=== PATIENT | female | born 1955 | race Caucasian/White ===

== ENCOUNTER 2020-07-13 21:13 | Emergency (ER) | payer MEDICARE ==
[~2020-07-13] VITALS: Ht 162.6 cm; Wt 53.5 kg
--- NOTE | 2020-07-13 21:44 | NUR ---
pt to room and assesed by . Rad to room for cxry
[2020-07-13 21:59] LABS: BASOPHILS % (AUTO) 1 % (0-1); EOSINOPHILS % (AUTO) 4 % (1-7); LYMPHOCYTES % (AUTO) 20 % (22-44); MEAN CORPUSCULAR HGB CONC 33.7 g/dL (32.4-35.8); MEAN PLATELET VOLUME 7.5 fL (7.4-10.4); MONOCYTES % (AUTO) 11 % (2-9); NEUTROPHILS % (AUTO) 63 % (42-75); PLATELET COUNT 318 x10^3/uL (130-400); RED BLOOD COUNT 3.91 x10^6/uL (3.82-5.3); RED CELL DISTRIBUTION WIDTH 12.5 % (9.6-15.2)
[2020-07-13 22:09] LABS: ALBUMIN 3.9 g/dL (3.4-5.0); CALCIUM 9.1 mg/dL (8.5-10.1); CHLORIDE 102 mmol/L (98-107); CREATININE 0.92 mg/dL (0.55-1.02)
[2020-07-13 22:10] LABS: MD NO
[2020-07-13 22:13] LABS: TROPONIN I < 0.015 ng/mL (0.000-0.045)
[2020-07-13] MEDS ORDERED: AZITHROMYCIN 250 MG TABLET ONE (22:22)
[2020-07-13 22:24] LABS: ANION GAP 4 mmol/L (5-15)
[2020-07-13] MEDS ORDERED: AZITHROMYCIN 500 MG TABLET PO ONE (22:30)
[2020-07-13 22:31] VITALS: BP 170/77
[2020-07-16] MEDS ORDERED: ATEN50TA41 PO (19:49)
[2020-07-16] MEDS ORDERED: LORA2TAB99 PO (19:49)
[2020-07-16] MEDS ORDERED: HYDR25CA PO (19:49)
[2020-07-16] MEDS ORDERED: OMEP20TA62 PO (19:49)
[2020-07-16] MEDS ORDERED: LINA290C PO (19:49)
[2020-07-16] MEDS ORDERED: AMLO5TAB4 PO (19:49)
[2020-07-16] MEDS ORDERED: CLON0.1T22 PO (19:49)
[2020-07-17] MEDS ORDERED: TIOT18CA INH (18:17)
== END 2020-07-13 23:33 | disposition home or self-care (01) ==
LOC: ED 22:14
DX: J44.1 Chronic obstructive pulmonary disease with (acute) exacerbation (principal); R94.31 Abnormal electrocardiogram [ECG] [EKG]; I10 Essential (primary) hypertension; F17.210 Nicotine dependence, cigarettes, uncomplicated
CPT/HCPCS: 36415; 71045; 80048; 82040; 83880; 84484; 85025; 93005; 99285; 99406

== ENCOUNTER 2020-08-13 17:03 | Emergency (ER) | payer MEDICARE ==
[~2020-08-13] VITALS: Ht 162.6 cm; Wt 52.9 kg
[~2020-08-13 17:03] MED LIST: AMLO5TAB4 PO; AMOX1TAB12 PO; ATEN50TA41 PO; CLON0.1T22 PO; HYDR25CA PO; LINA290C PO; LORA2TAB99 PO; OMEP20TA62 PO; TIOT18CA INH
--- NOTE | 2020-08-13 17:16 | NUR ---
[employer]: PT AMBULATED TO THE ROOM W/ A STEADY GAIT AT THIS TIME.
--- NOTE | 2020-08-13 17:19 | NUR ---
ERMD AT BEDSIDE FOR EVALUATION.
--- NOTE | 2020-08-13 17:20 | NUR ---
PATIENT WALKED BACK FROM TRIAGE WITH CHIEF C/O HIGH HEART RATE AND ERRATIC BLOOD PRESSURE. PER PATIENT SHE HAS BEEN SEEN HERE FOR SAME ISSUE, ADMITTED AND FOLLOWED UP WITH DR. BOOGIE AFTER DISCHARGE. HOWEVER, IN THE EVENING PATIENT'S HR IS GREATER THAN 100 PER PATIENT. PATIENT ALSO C/O HER FEET BEING COLD ALL THE TIME. NADN, HR NOW IS 92, ACCOMPANIED BY FRIEND. CALL LIGHT WITHIN REACH.
[2020-08-13 17:59] LABS: BASOPHILS % (AUTO) 2 % (0-1); EOSINOPHILS % (AUTO) 4 % (1-7); LYMPHOCYTES % (AUTO) 26 % (22-44); MEAN CORPUSCULAR HEMOGLOBIN 31.8 pg (27.0-34.8); MEAN CORPUSCULAR HGB CONC 33.8 g/dL (32.4-35.8); MEAN PLATELET VOLUME 7.5 fL (7.4-10.4); MONOCYTES % (AUTO) 8 % (2-9); NEUTROPHILS % (AUTO) 60 % (42-75); PLATELET COUNT 366 x10^3/uL (130-400); RED BLOOD COUNT 3.78 x10^6/uL (3.82-5.3); RED CELL DISTRIBUTION WIDTH 12.6 % (9.6-15.2)
[2020-08-13 18:04] LABS: MD NO
--- NOTE | 2020-08-13 18:05 | NUR ---
PATIENT SITTING IN GURNEY TALKING WITH FRIEND, NADN, VSS, CALL LIGHT WITHIN REACH. WARM BLANKET PROVIDED TO PATIENT.
[2020-08-13 18:07] LABS: ALBUMIN 3.5 g/dL (3.4-5.0); ANION GAP 6 mmol/L (5-15); CALCIUM 9.1 mg/dL (8.5-10.1); CHLORIDE 108 mmol/L (98-107); CREATININE 1.08 mg/dL (0.55-1.02)
[2020-08-13 18:17] LABS: FREE T4 (FREE THYROXINE) 0.87 ng/dL (0.76-1.46); TROPONIN I < 0.015 ng/mL (0.000-0.045)
[2020-08-13 18:19] VITALS: BP 106/55
--- NOTE | 2020-08-13 18:24 | NUR ---
ERMD AT BEDSIDE TO DISCUSS POC.
--- NOTE | 2020-08-13 18:39 | NUR ---
Patient given discharge instructions and they have confirmed that they understand the instructions. Patient stable and ambulatory with steady gait from ED with friend at side.
== END 2020-08-13 18:35 | disposition home or self-care (01) ==
LOC: ED 18:15
DX: R00.2 Palpitations (principal); F41.1 Generalized anxiety disorder; I10 Essential (primary) hypertension; J44.9 Chronic obstructive pulmonary disease, unspecified; E78.5 Hyperlipidemia, unspecified; F17.210 Nicotine dependence, cigarettes, uncomplicated; Z85.3 Personal history of malignant neoplasm of breast; Z86.73 Personal history of transient ischemic attack (TIA), and cerebral infarction without residual deficits; Z85.44 Personal history of malignant neoplasm of other female genital organs
CPT/HCPCS: 36415; 80048; 82040; 84439; 84443; 84484; 85025; 93005; 99284; 99406

== ENCOUNTER 2021-01-21 07:30 | Day surgery (SDC) | payer MEDICARE ==
[2021-01-19 14:54] LABS: ALANINE AMINOTRANSFERASE 24 U/L (12-78); ALBUMIN 3.9 g/dL (3.4-5.0); ANION GAP 3 mmol/L (5-15); CALCIUM 9.7 mg/dL (8.5-10.1); CHLORIDE 102 mmol/L (98-107); CREATININE 0.85 mg/dL (0.55-1.02)
[2021-01-19 14:56] LABS: ALKALINE PHOSPHATASE 73 U/L (45-117); BILIRUBIN,TOTAL 0.3 mg/dL (0.2-1.0); TOTAL PROTEIN 7.4 g/dL (6.4-8.2)
[~2021-01-21] VITALS: Ht 165.1 cm; Wt 49.7 kg
[~2021-01-21 07:30] MED LIST changes: +ASPI81TA45 PO; +ATEN25TA PO; +CIDE300T PO; +CINN500C2 PO; +LORA-446 PO; +SIME180C44 PO
[2021-01-21] MEDS ORDERED: CHLORHEXIDINE 15 ML UDC ONE (07:49)
[2021-01-21 07:59] VITALS: BP 119/69
[2021-01-21] MEDS ORDERED: CHLORHEXIDINE 15 ML UDC PO ONE (08:00)
[2021-01-21] MEDS ORDERED: LACTATED RINGERS 1,000 ML IV SCH (08:00)
[2021-01-21] MEDS ORDERED: UMEC1DIS INH (08:07)
[2021-01-21] MEDS ORDERED: PROPOFOL 100 ML ONE (09:40)
[2021-01-21] MEDS ORDERED: ACETAMINOPHEN 325 MG TABLET PO PRN (11:00)
[2021-01-21] MEDS ORDERED: PROMETHAZINE 25 MG/ML, 1ML IVPush PRN (11:00)
[2021-01-21] MEDS ORDERED: hydrALAzine 20 MG/ML, 1ML IV PRN (11:00)
[2021-01-21] MEDS ORDERED: HYDROmorphone 1 MG/ML, 1ML INJ IVPush PRN (11:00)
[2021-01-21] MEDS ORDERED: OXYcodone 5 MG/5 ML ORAL.SOL UDC PO PRN (11:00)
[2021-01-21] MEDS ORDERED: ONDANSETRON 2MG/ML, 2ML IVPush PRN (11:00)
[2021-01-21] MEDS ORDERED: LORazepam 2 MG/ML, 1ML IVPush PRN (11:00)
[2021-01-21] MEDS ORDERED: FENTANYL PF 100 MCG/2ML IV PRN (11:00)
[2021-01-21] MEDS ORDERED: LABETALOL 5MG/ML, 20ML IV PRN (11:00)
[2021-01-21] MEDS ORDERED: PROMETHAZINE 25 MG SUPP PR PRN (11:00)
== END 2021-01-21 12:30 | disposition home or self-care (01) ==
LOC: OUT 07:30
PROVIDERS: ATTEND Internal Medicine Gastroenterology
DX: D12.3 Benign neoplasm of transverse colon (principal); D12.0 Benign neoplasm of cecum; J44.9 Chronic obstructive pulmonary disease, unspecified; K21.9 Gastro-esophageal reflux disease without esophagitis; F17.210 Nicotine dependence, cigarettes, uncomplicated; I10 Essential (primary) hypertension; E78.00 Pure hypercholesterolemia, unspecified; F32.9 Major depressive disorder, single episode, unspecified; Z85.3 Personal history of malignant neoplasm of breast; F41.9 Anxiety disorder, unspecified; Z88.8 Allergy status to other drugs, medicaments and biological substances; Z88.5 Allergy status to narcotic agent; Z90.49 Acquired absence of other specified parts of digestive tract; Z98.890 Other specified postprocedural states; Z79.899 Other long term (current) drug therapy; Z79.82 Long term (current) use of aspirin
CPT/HCPCS: 36415; 43239; 43249; 45385; 80053; 88305; 93005; C1725; J2704; J7120; U0003; U0005

== ENCOUNTER 2021-04-09 17:57 | Inpatient (IN) | payer MEDICARE ==
[~2021-04-09] VITALS: Ht 162.6 cm; Wt 52.2 kg
[~2021-04-09 17:57] MED LIST changes: +LOSA25TA12 PO; +UMEC1DIS INH
--- NOTE | 2021-04-09 18:21 | NUR ---
BIBA FROM HOME FOR GENERALIZED LE WEAKNESS X 3 YEARS AND MULTIPLE GLF X3 DAYS. NO TRAUMA NOTED, NO MIDLINE CERVICAL TENDERNESS. PT ALSO STATES SHE TOOK PRESCRIBED XANAX TODAY. pt tearful but cooperative, denies SI, a&o, resps even and unlabored, ermjames Sheehan at bedside for eval.
[2021-04-09] MEDS ORDERED: PLEASE ENTER HEIGHT AND WEIGHT MC SCH (18:30)
[2021-04-09] MEDS ORDERED: SODIUM CHLORIDE 0.9% 1,000 ML IV ONE (18:30)
[2021-04-09 18:47] LABS: BASOPHILS % (AUTO) 0 % (0-1); EOSINOPHILS % (AUTO) 0 % (1-7); LYMPHOCYTES % (AUTO) 4 % (22-44); MEAN CORPUSCULAR HEMOGLOBIN 33.6 pg (27.0-34.8); MEAN CORPUSCULAR HGB CONC 33.9 g/dL (32.4-35.8); MEAN PLATELET VOLUME 7.5 fL (7.4-10.4); MONOCYTES % (AUTO) 5 % (2-9); NEUTROPHILS % (AUTO) 91 % (42-75); PLATELET COUNT 346 x10^3/uL (130-400); RED BLOOD COUNT 4.03 x10^6/uL (3.82-5.3); RED CELL DISTRIBUTION WIDTH 13.4 % (9.6-15.2)
--- NOTE | 2021-04-09 18:52 | NUR ---
ua collected via straight cath, walked to lab at this time
[2021-04-09 18:56] LABS: ALBUMIN 3.6 g/dL (3.4-5.0); ANION GAP 8 mmol/L (5-15); CHLORIDE 108 mmol/L (98-107); SALICYLATE LEVEL 5.7 mg/dL (2.8-20.0)
[2021-04-09 19:02] LABS: MICROSCOPIC NOT IND
[2021-04-09 19:05] LABS: ALANINE AMINOTRANSFERASE 28 U/L (12-78); ALKALINE PHOSPHATASE 74 U/L (45-117); BILIRUBIN,TOTAL 0.4 mg/dL (0.2-1.0); CREATININE 1.37 mg/dL (0.55-1.02); TOTAL PROTEIN 7.4 g/dL (6.4-8.2)
[2021-04-09 19:14] LABS: AMPHETAMINE SCREEN, URINE Negative (Negative); BARBITURATE SCREEN, URINE Negative (Negative); BENZODIAZEPINE SCREEN, URINE Negative (Negative); CANNABINOID SCREEN, URINE Negative (Negative); COCAINE SCREEN, URINE Negative (Negative); METHADONE SCREEN, URINE Negative (Negative); OPIATE SCREEN, URINE Negative (Negative)
--- NOTE | 2021-04-09 19:48 | NUR ---
pt resting in bed, vss, nadn. awaiting lab results and dispo
--- NOTE | 2021-04-09 20:26 | NUR ---
[facility] at bedside for eval
[2021-04-09] MEDS ORDERED: hydrALAzine 20 MG/ML, 1ML IVPush PRN (20:30)
[2021-04-09] MEDS ORDERED: POLYETHYLENE GLYCOL 17 GM PACKET PO PRN (20:30)
[2021-04-09] MEDS ORDERED: SODIUM CHLORIDE 0.9% 1,000 ML IV SCH (20:30)
[2021-04-09] MEDS ORDERED: ONDANSETRON 2MG/ML, 2ML IVPush PRN (20:30)
[2021-04-09] MEDS ORDERED: BISACODYL 10 MG SUPP PR PRN (20:30)
[2021-04-09] MEDS ORDERED: ONDANSETRON ODT 4 MG PO PRN (20:30)
--- NOTE | 2021-04-09 21:46 | NUR ---
continuous rectal temp probe applied, fluids infusing, pt able to use bedside nadn. jeyson
--- NOTE | 2021-04-09 22:29 | NUR ---
[facility] aware of pt condition, orders received.
--- NOTE | 2021-04-09 22:42 | NUR ---
pt back from ct, nadn.
--- NOTE | 2021-04-09 23:08 | NUR ---
report called to delores BIRD
[2021-04-10 01:09] VITALS: BP 102/55
[2021-04-10] MEDS: HEPARIN 5,000 UNITS/ML, 1ML SQ SCH ×3 (01:24→17:23)
[2021-04-10 02:53] VITALS: BP 130/68
[2021-04-10 05:23] LABS: BASOPHILS % (AUTO) 0 % (0-1); EOSINOPHILS % (AUTO) 0 % (1-7); LYMPHOCYTES % (AUTO) 9 % (22-44); MEAN CORPUSCULAR HEMOGLOBIN 33.6 pg (27.0-34.8); MEAN CORPUSCULAR HGB CONC 33.8 g/dL (32.4-35.8); MEAN PLATELET VOLUME 7.8 fL (7.4-10.4); MONOCYTES % (AUTO) 6 % (2-9); NEUTROPHILS % (AUTO) 85 % (42-75); PLATELET COUNT 325 x10^3/uL (130-400); RED BLOOD COUNT 3.46 x10^6/uL (3.82-5.3); RED CELL DISTRIBUTION WIDTH 13.7 % (9.6-15.2)
[2021-04-10 05:31] LABS: ANION GAP 5 mmol/L (5-15); CALCIUM 9.1 mg/dL (8.5-10.1); CHLORIDE 112 mmol/L (98-107)
[2021-04-10 05:33] LABS: CREATININE 1.03 mg/dL (0.55-1.02)
[2021-04-10 07:53] VITALS: BP 126/58
[2021-04-10] MEDS: SENNA/DOCUSATE TABLET PO SCH (08:50)
[2021-04-10] MEDS: LORazepam 1MG TABLET PO PRN ×2 (11:53→21:20)
[2021-04-10 13:10] VITALS: BP 105/59
[2021-04-10 14:43] VITALS: BP 106/62
[2021-04-10] MEDS ORDERED: NICOTINE 21 MG/24 HR PATCH.TD24 TD ONE (17:00)
[2021-04-10 21:02] VITALS: BP 117/64
[2021-04-10] MEDS: ACETAMINOPHEN 325 MG TABLET PO PRN (21:20)
[2021-04-11 01:28] VITALS: BP 92/53
[2021-04-11] MEDS: HEPARIN 5,000 UNITS/ML, 1ML SQ SCH ×3 (01:31→17:39)
[2021-04-11] MEDS ORDERED: LACTATED RINGERS 500 ML IVBOLUS ONE ×2 (05:00→11:00)
[2021-04-11] MEDS ORDERED: PROMETHAZINE 25 MG/ML, 1ML IM PRN (05:00)
[2021-04-11] MEDS: SODIUM CHLORIDE 0.9% 1,000 ML IV SCH ×2 (08:00→17:54)
[2021-04-11 09:00] VITALS: BP 87/51
[2021-04-11] MEDS: SENNA/DOCUSATE TABLET PO SCH (09:00)
[2021-04-11] MEDS: HYDROXYZINE PAMOATE 25MG CAP PO SCH ×4 (09:00→21:26)
[2021-04-11] MEDS: ASPIRIN 81 MG TABLET EC PO SCH ×2 (09:00→10:44)
[2021-04-11 13:20] VITALS: BP 100/59
[2021-04-11] MEDS ORDERED: BENZOCAINE 20% SPRAY 0.5ML ONE (14:34)
[2021-04-11] MEDS ORDERED: LIDOCAINE GEL 2%, 5ML ONE (14:48)
[2021-04-11 17:39] VITALS: BP 95/58
[2021-04-11 21:10] VITALS: BP 94/53
[2021-04-12 01:44] VITALS: BP 93/47
[2021-04-12] MEDS: HEPARIN 5,000 UNITS/ML, 1ML SQ SCH ×3 (01:46→15:36)
[2021-04-12] MEDS: SODIUM CHLORIDE 0.9% 1,000 ML IV SCH ×2 (04:01→20:18)
[2021-04-12 05:54] LABS: BASOPHILS % (AUTO) 0 % (0-1); EOSINOPHILS % (AUTO) 0 % (1-7); LYMPHOCYTES % (AUTO) 10 % (22-44); MEAN CORPUSCULAR HEMOGLOBIN 33.9 pg (27.0-34.8); MEAN CORPUSCULAR HGB CONC 34.2 g/dL (32.4-35.8); MEAN PLATELET VOLUME 8.5 fL (7.4-10.4); MONOCYTES % (AUTO) 10 % (2-9); NEUTROPHILS % (AUTO) 79 % (42-75); PLATELET COUNT 245 x10^3/uL (130-400); RED CELL DISTRIBUTION WIDTH 13.4 % (9.6-15.2)
[2021-04-12 06:02] LABS: ANION GAP 4 mmol/L (5-15); CALCIUM 8.6 mg/dL (8.5-10.1); CHLORIDE 108 mmol/L (98-107); CREATININE 0.88 mg/dL (0.55-1.02)
[2021-04-12] MEDS ORDERED: MAGNESIUM SULFATE PMX 2GM/50ML 50 ML IV ONE (07:00)
[2021-04-12] MEDS ORDERED: METRONIDAZOLE PMX 500MG/100ML 100 ML IV SCH (07:00)
[2021-04-12] MEDS ORDERED: CEFTRIAXONE 2 GM in DEXTROSE 5% 50 ML IVPB SCH (07:00)
[2021-04-12] MEDS: SENNA/DOCUSATE TABLET PO SCH (07:59)
[2021-04-12] MEDS: HYDROXYZINE PAMOATE 25MG CAP PO SCH ×3 (07:59→20:18)
[2021-04-12] MEDS: ASPIRIN 81 MG TABLET EC PO SCH (07:59)
[2021-04-12] MEDS ORDERED: PHENOL THROAT SPRAY BOTTLE MM PRN (08:00)
[2021-04-12 08:49] VITALS: BP 120/59
[2021-04-12] MEDS ORDERED: NICOTINE 21 MG/24 HR PATCH.TD24 ONE (14:13)
[2021-04-12] MEDS: NICOTINE 21 MG/24 HR PATCH.TD24 TD SCH (14:19)
[2021-04-12 14:25] VITALS: BP 129/63
[2021-04-12] MEDS: LORazepam 1MG TABLET PO PRN (15:36)
[2021-04-12 19:53] VITALS: BP 126/55
[2021-04-13] MEDS: ACETAMINOPHEN 325 MG TABLET PO PRN (00:22)
[2021-04-13] MEDS: HEPARIN 5,000 UNITS/ML, 1ML SQ SCH ×2 (00:22→08:24)
[2021-04-13] MEDS: LORazepam 1MG TABLET PO PRN (00:22)
[2021-04-13 00:34] VITALS: BP 142/66
[2021-04-13] MEDS: SODIUM CHLORIDE 0.9% 1,000 ML IV SCH (05:49)
[2021-04-13 06:01] LABS: BASOPHILS % (AUTO) 1 % (0-1); EOSINOPHILS % (AUTO) 3 % (1-7); LYMPHOCYTES % (AUTO) 12 % (22-44); MEAN CORPUSCULAR HEMOGLOBIN 34.6 pg (27.0-34.8); MEAN CORPUSCULAR HGB CONC 35.3 g/dL (32.4-35.8); MEAN PLATELET VOLUME 8.2 fL (7.4-10.4); MONOCYTES % (AUTO) 10 % (2-9); NEUTROPHILS % (AUTO) 74 % (42-75); PLATELET COUNT 232 x10^3/uL (130-400); RED BLOOD COUNT 3.25 x10^6/uL (3.82-5.3); RED CELL DISTRIBUTION WIDTH 13.2 % (9.6-15.2)
[2021-04-13 06:09] LABS: ANION GAP 6 mmol/L (5-15); CHLORIDE 107 mmol/L (98-107); CREATININE 0.61 mg/dL (0.55-1.02)
[2021-04-13 06:18] VITALS: BP 133/58
[2021-04-13] MEDS ORDERED: POTASSIUM CHLORIDE 20 MEQ TAB.ER.PRT PO ONE (06:30)
[2021-04-13] MEDS: HYDROXYZINE PAMOATE 25MG CAP PO SCH (08:23)
[2021-04-13] MEDS: SENNA/DOCUSATE TABLET PO SCH (08:23)
[2021-04-13] MEDS: ASPIRIN 81 MG TABLET EC PO SCH (08:23)
[2021-04-13] MEDS ORDERED: LOSARTAN 25MG TABLET PO SCH (09:00)
[2021-04-13] MEDS ORDERED: KETOROLAC 30 MG/1 ML ONE (09:16)
[2021-04-13] MEDS ORDERED: KETOROLAC 30 MG/1 ML IVPush PRN (09:30)
[2021-04-13] MEDS ORDERED: KETOROLAC 15 MG/1ML IVPush PRN (10:00)
[2021-04-13 12:08] VITALS: BP 131/62
[2021-04-13] MEDS: NICOTINE 21 MG/24 HR PATCH.TD24 TD SCH (14:00)
== END 2021-04-13 15:24 | disposition home health service (06) | DRG 917 ==
LOC: ED 21:13 → INTOOBSV 22:46 → EDIP 22:46 → OBSVTOIN 22:46 → 5SO 23:56
PROVIDERS: ADMIT Internal Medicine; ATTEND Hospitalist
PROC: 0T9B70Z Drainage of Bladder with Drainage Device, Via Natural or Artificial Opening (ICD-10-PCS; principal; 2021-04-09)
PROC: 0D9630Z Drainage of Stomach with Drainage Device, Percutaneous Approach (ICD-10-PCS; 2021-04-11)
PROC: BD12ZZZ Fluoroscopy of Stomach (ICD-10-PCS; 2021-04-11)
PROC: 0D9670Z Drainage of Stomach with Drainage Device, Via Natural or Artificial Opening (ICD-10-PCS; 2021-04-13)
DX: T39.1X1A Poisoning by 4-Aminophenol derivatives, accidental (unintentional), initial encounter (principal); G92 Toxic encephalopathy; N17.0 Acute kidney failure with tubular necrosis; K56.600 Partial intestinal obstruction, unspecified as to cause; I11.0 Hypertensive heart disease with heart failure; T42.4X1A Poisoning by benzodiazepines, accidental (unintentional), initial encounter; T44.7X1A Poisoning by beta-adrenoreceptor antagonists, accidental (unintentional), initial encounter; D72.829 Elevated white blood cell count, unspecified; F17.200 Nicotine dependence, unspecified, uncomplicated; I50.9 Heart failure, unspecified; K31.84 Gastroparesis; J44.9 Chronic obstructive pulmonary disease, unspecified; R09.02 Hypoxemia; Z66 Do not resuscitate; I20.9 Angina pectoris, unspecified; F43.20 Adjustment disorder, unspecified; R68.0 Hypothermia, not associated with low environmental temperature; R26.2 Difficulty in walking, not elsewhere classified; R00.1 Bradycardia, unspecified; F32.9 Major depressive disorder, single episode, unspecified; R53.81 Other malaise; Y92.009 Unspecified place in unspecified non-institutional (private) residence as the place of occurrence of the external cause; Z80.3 Family history of malignant neoplasm of breast; Z85.3 Personal history of malignant neoplasm of breast; Z83.3 Family history of diabetes mellitus; Z82.49 Family history of ischemic heart disease and other diseases of the circulatory system; Z85.44 Personal history of malignant neoplasm of other female genital organs; Z86.73 Personal history of transient ischemic attack (TIA), and cerebral infarction without residual deficits; Z90.710 Acquired absence of both cervix and uterus; Z90.49 Acquired absence of other specified parts of digestive tract; Z88.5 Allergy status to narcotic agent
CPT/HCPCS: 36415; 70450; 71045; 74018; 74176; 74250; 74340; 80048; 80053; 80299; 80307; 80320; 80329; 81003; 83605; 83615; 83735; 84443; 85025; 85379; 86140; 87040; 93005; 96360; 96361; G0378; J0696; J1644; J1885; J2405; J2550; J7120; G0480; J3475; J7030